=== PATIENT | female | born 1965 | race Caucasian/White ===

== ENCOUNTER 2017-03-01 11:39 | Day surgery (SDC) | payer BC ==
[2017-03-01] MEDS ORDERED: D5 LR 1000 ML 1,000 ML IV ONE (11:42)
[2017-03-01] MEDS ORDERED: DIPRIVAN VIAL 20 ML ONE (12:32)
[2017-03-01] MEDS ORDERED: DIPRIVAN VIAL 10 ML ONE (12:55)
[2017-03-01 13:25] VITALS: BP 110/60
== END 2017-03-01 13:25 | disposition home or self-care (01) ==
LOC: SURG1 11:39
PROVIDERS: ATTEND Internal Medicine Gastroenterology
PROC: 0DBP8ZX Excision of Rectum, Via Natural or Artificial Opening Endoscopic, Diagnostic (ICD-10-PCS; principal; 2017-03-01 15:00)
PROC: 0DBH8ZX Excision of Cecum, Via Natural or Artificial Opening Endoscopic, Diagnostic (ICD-10-PCS; principal; 2017-03-01 15:00)
PROC: 0DBN8ZX Excision of Sigmoid Colon, Via Natural or Artificial Opening Endoscopic, Diagnostic (ICD-10-PCS; principal; 2017-03-01 15:00)
PROC: 0DJD8ZZ Inspection of Lower Intestinal Tract, Via Natural or Artificial Opening Endoscopic (ICD-10-PCS; principal; 2017-03-01 15:00)
DX: Z12.11 Encounter for screening for malignant neoplasm of colon (principal); K63.5 Polyp of colon; K64.0 First degree hemorrhoids; Z80.0 Family history of malignant neoplasm of digestive organs; D12.5 Benign neoplasm of sigmoid colon; D12.0 Benign neoplasm of cecum
CPT/HCPCS: A4217; J3490; J7120